=== PATIENT | female | born 1985 | race Caucasian/White ===

== ENCOUNTER 2018-10-08 12:41 | Emergency (ER) | payer OTHER ==
[2018-10-08] MEDS ORDERED: Ondansetron 4 MG/2 ML SDV IVPUSH ONE ×2 (13:20→15:52)
[2018-10-08] MEDS ORDERED: Alum Hydrox/Mag Hydrox/Simeth 15 ML, Lidocaine 2% 5 ML PO ONE ×2 (13:20)
[2018-10-08] MEDS ORDERED: Sodium Chloride 0.9% 1,000 ML IV ONE (13:20)
[2018-10-08] MEDS ORDERED: Pantoprazole 40 MG Vial IVPUSH ONE (13:33)
[2018-10-08] MEDS ORDERED: Ketorolac 30 MG/ML SDV IVPUSH ONE (13:34)
[2018-10-08] MEDS ORDERED: Water For Injection, Sterile 20 ML ONE (13:47)
[2018-10-08 13:54] LABS: CHLORIDE,CL 101 mmol/L (98-107); SODIUM,NA 137 mmol/L (136-145)
[2018-10-08] MEDS ORDERED: Iopamidol 755 MG/ML 500 ML Multipack Bottle IV STA (14:57)
--- NOTE | 2018-10-08 16:12 | EDM.PDOC ---
ED HPI GENERAL MEDICAL PROBLEM - General Chief Complaint: Abdominal Pain Stated Complaint: STOMACH PAIN Time Seen by Provider: 10/08/18 12:43 Source of Information: Reports: Patient History Limitations: Reports: No Limitations - History of Present Illness INITIAL COMMENTS - FREE TEXT/NARRATIVE: HISTORY AND PHYSICAL: History of present illness: Patient is a 33-year-old female presents to the ED today with concern of right lower abdominal pain and diarrhea with nausea since yesterday. Patient does express some heartburn symptoms. Patient states she is having several episodes of watery diarrhea today. Patient states she feels nauseous and is having 8 out of 10 right lower quadrant pain. Patient denies any abdominal surgeries. Patient denies any health history. Patient states she has not taken anything for her symptoms. Patient denies any other associated symptoms. Patient denies fever, chills, chest pain, shortness of breath, or cough. Denies headache, neck stiff ness, change in vision, syncope, or near syncope. Denies vomiting, or dysuria. Has not noted any blood in urine or stool. Patient has been eating and drinking appropriately prior to onset of symptoms. Review of systems: As per history of present illness and below otherwise all systems reviewed and negative. Past medical history: As per history of present illness and as reviewed below otherwise noncontributory. Surgical history: As per history of present illness and as reviewed below otherwise noncontributory. Social history: See social history for further information Family history: As per history of present illness and as reviewed below otherwise noncontributory. Physical exam: General: Patient is alert, oriented, and in no acute distress. Patient sitting comfortably on exam table. HEENT: Atraumatic, normocephalic, pupils equal and reactive bilaterally, negative for conjunctival pallor or scleral icterus, mucous membranes moist, TMs normal bilaterally, throat clear, neck supple, nontender, trachea midline. No drooling or trismus noted. No meningeal signs. No hot potato voice noted. Lungs: Clear to auscultation, breath sounds equal bilaterally, chest nontender. Heart: S1S2, regular rate and rhythm without overt murmur Abdomen: Soft, nondistended. Mild pain with palpation of the. Umbilical area without guarding. Negative rebound. Negative for masses or hepatosplenomegaly. Negative for costovertebral tenderness. Pelvis: Stable nontender. Genitourinary: Deferred. Rectal: Deferred. Skin: Intact, warm, dry. No lesions or rashes noted. Extremities: Atraumatic, negative for cords or calf pain. Neurovascular unremarkable. Neuro: Awake, alert, oriented. Cranial nerves II through XII unremarkable. Cerebellum unremarkable. Motor and sensory unremarkable throughout. Exam nonfocal. Notes: Dr. Manning verbally involved in patient care. Patient is unable to leave a stool sample in the ED. Collection supplies have been given to her to leave a sample at home and return to lab. Referral generated to General Surgery. Voices understanding and is agreeable to plan of care. Denies any further questions or concerns at this time. Diagnostics: CBC, CMP, UA, urine hCG, lipase, abdominal pelvic CT, stool studies Therapeutics: Zofran, saline, Protonix, Prescription: Zofran, Ciprofloxacin, Flagyl, Bentyl Impression: Mild Colitis Plan: 1. Stool collection supplies have been provided to you to leave a sample at home and return to our lab. 2. Alternate ibuprofen and Tylenol as directed for pain and discomfort. Take medication as prescribed. 3. Follow up with General Surgery provider as discussed. Return to the ED as needed and as discussed. Definitive disposition and diagnosis as appropriate pending reevaluation and review of above. Abdomen Pain Score (Numeric/FACES): 7 - Related Data Allergies Allergy/AdvReac Type Severity Reaction Status Date / Time adhesive tape Allergy Rash Verified 10/08/18 13:05 NSAIDS (Non-Steroidal Allergy Diarrhea Verified 10/08/18 13:05 Anti-Inflamma prednisone Allergy Other Verified 10/08/18 13:05 sulfamethoxazole Allergy Itching Verified 10/08/18 13:05 [From Bactrim] trimethoprim [From Bactrim] Allergy Itching Verified 10/08/18 13:05 Home Meds: Home Meds ALPRAZolam [Xanax] 1 mg PO TID 10/08/18 [History] Acetaminophen [Tylenol] 650 mg PO ASDIRECTED 10/08/18 [History] FLUoxetine [PROzac] 60 mg PO BID 10/08/18 [History] Past Medical History Other Neuro History: TBA Psychiatric History: Reports: Anxiety - Infectious Disease History Infectious Disease History: Reports: Chicken Pox - Past Surgical History Female Surgical History: Reports: Section Musculoskeletal Surgical History: Reports: Other (See Below) Other Musculoskeletal Surgeries/Procedures:: 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 Left foot surgery Social & Family History - Family History Family Medical History: Noncontributory - Tobacco Use Smoking Status *Q: Current Every Day Smoker Years of Tobacco use: 18 Packs/Tins Daily: 0.5 - Caffeine Use Caffeine Use: Reports: Coffee - Recreational Drug Use Recreational Drug Use: No ED ROS GENERAL - Review of Systems Review Of Systems: ROS reveals no pertinent complaints other than HPI. ED EXAM, GENERAL - Physical Exam Exam: See Below (See dictation) Course - Vital Signs Last Recorded V/S: Last Vital Signs Temp 36.1 C 10/08/18 15:03 Pulse 69 10/08/18 15:03 Resp 18 10/08/18 13:15 BP 100/52 L 10/08/18 15:03 Pulse Ox 98 10/08/18 15:03 - Orders/Labs/Meds Orders: Active Orders 24 hr Category Date Time Status CDIFF TOX A+B [OP] Stat Lab 10/08/18 13:20 Ordered CULTURE STOOL + CAMPY+SHIGATOX [RM] Stat Lab 10/08/18 13:20 Ordered OVA & PARASITES BY IMMUNOASSAY [MREF] Stat Lab 10/08/18 13:20 Ordered Isolation [COMM] Stat Oth 10/08/18 13:21 Ordered Labs: Laboratory Tests 10/08/18 10/08/18 10/08/18 Range/Units 13:14 13:14 13:16 WBC 12.88 H (4.0-11.0) K/uL RBC 4.62 (4.30-5.90) M/uL Hgb 14.8 (12.0-16.0) g/dL Hct 43.6 (36.0-46.0) % MCV 94.4 (80.0-98.0) fL MCH 32.0 (27.0-32.0) pg MCHC 33.9 (31.0-37.0) g/dL RDW Std Deviation 46.9 (28.0-62.0) fl RDW Coeff of Angela 14 (11.0-15.0) % Plt Count 277 (150-400) K/uL MPV 10.50 (7.40-12.00) fL Neut % (Auto) 71.5 (48.0-80.0) % Lymph % (Auto) 20.5 (16.0-40.0) % [place] % (Auto) 5.7 (0.0-15.0) % Eos % (Auto) 1.8 (0.0-7.0) % Baso % (Auto) 0.5 (0.0-1.5) % Neut # (Auto) 9.2 H (1.4-5.7) K/uL Lymph # (Auto) 2.6 H (0.6-2.4) K/uL [place] # (Auto) 0.7 (0.0-0.8) K/uL Eos # (Auto) 0.2 (0.0-0.7) K/uL Baso # (Auto) 0.1 (0.0-0.1) K/uL Nucleated RBC % 0.0 /100WBC Nucleated RBCs # 0 K/uL Sodium (136-145) mmol/L Potassium (3.5-5.1) mmol/L Chloride (98-107) mmol/L Carbon Dioxide (21.0-32.0) mmol/L BUN (7.0-18.0) mg/dL Creatinine (0.6-1.0) mg/dL Est Cr Clr Drug Dosing mL/min Estimated GFR (MDRD) ml/min Glucose (74-106) mg/dL Calcium (8.5-10.1) mg/dL Total Bilirubin (0.2-1.0) mg/dL AST (15-37) IU/L ALT (14-63) IU/L Alkaline Phosphatase (46-116) U/L Total Protein (6.4-8.2) g/dL Albumin (3.4-5.0) g/dL Globulin (2.6-4.0) g/dL Albumin/Globulin Ratio (0.9-1.6) Lipase (73-393) U/L Urine Color YELLOW Urine Appearance CLEAR Urine pH 8.0 (5.0-8.0) Ur Specific [place] 1.010 (1.001-1.035) Urine Protein NEGATIVE (NEGATIVE) mg/dL Urine Glucose (UA) NEGATIVE (NEGATIVE) mg/dL Urine Ketones NEGATIVE (NEGATIVE) mg/dL Urine Occult Blood NEGATIVE (NEGATIVE) Urine Nitrite NEGATIVE (NEGATIVE) Urine Bilirubin NEGATIVE (NEGATIVE) Urine Urobilinogen 0.2 (<2.0) EU/dL Ur Leukocyte Esterase NEGATIVE (NEGATIVE) Urine HCG, Qual NEGATIVE (NEGATIVE) 10/08/18 Range/Units 13:16 WBC (4.0-11.0) K/uL RBC (4.30-5.90) M/uL Hgb (12.0-16.0) g/dL Hct (36.0-46.0) % MCV (80.0-98.0) fL MCH (27.0-32.0) pg MCHC (31.0-37.0) g/dL RDW Std Deviation (28.0-62.0) fl RDW Coeff of Angela (11.0-15.0) % Plt Count (150-400) K/uL MPV (7.40-12.00) fL Neut % (Auto) (48.0-80.0) % Lymph % (Auto) (16.0-40.0) % [place] % (Auto) (0.0-15.0) % Eos % (Auto) (0.0-7.0) % Baso % (Auto) (0.0-1.5) % Neut # (Auto) (1.4-5.7) K/uL Lymph # (Auto) (0.6-2.4) K/uL [place] # (Auto) (0.0-0.8) K/uL Eos # (Auto) (0.0-0.7) K/uL Baso # (Auto) (0.0-0.1) K/uL Nucleated RBC % /100WBC Nucleated RBCs # K/uL Sodium 137 (136-145) mmol/L Potassium 4.4 (3.5-5.1) mmol/L Chloride 101 (98-107) mmol/L Carbon Dioxide 26.5 (21.0-32.0) mmol/L BUN 13 (7.0-18.0) mg/dL Creatinine 0.9 (0.6-1.0) mg/dL Est Cr Clr Drug Dosing 76.77 mL/min Estimated GFR (MDRD) > 60.0 ml/min Glucose 97 (74-106) mg/dL Calcium 8.9 (8.5-10.1) mg/dL Total Bilirubin 0.4 (0.2-1.0) mg/dL AST 22 (15-37) IU/L ALT 20 (14-63) IU/L Alkaline Phosphatase 91 (46-116) U/L Total Protein 7.6 (6.4-8.2) g/dL Albumin 3.9 (3.4-5.0) g/dL Globulin 3.7 (2.6-4.0) g/dL Albumin/Globulin Ratio 1.1 (0.9-1.6) Lipase 105 (73-393) U/L Urine Color Urine Appearance Urine pH (5.0-8.0) Ur Specific [place] (1.001-1.035) Urine Protein (NEGATIVE) mg/dL Urine Glucose (UA) (NEGATIVE) mg/dL Urine Ketones (NEGATIVE) mg/dL Urine Occult Blood (NEGATIVE) Urine Nitrite (NEGATIVE) Urine Bilirubin (NEGATIVE) Urine Urobilinogen (<2.0) EU/dL Ur Leukocyte Esterase (NEGATIVE) Urine HCG, Qual (NEGATIVE) Meds: Medications Discontinued Medications Generic Name Dose Route Start Last Admin Trade Name Freq PRN Reason Stop Dose Admin Al Hydroxide/Mg Hydroxide 15 0 ml 10/08/18 13:20 10/08/18 13:31 ml/ Lidocaine HCl 5 ml PO 10/08/18 13:21 1 each ONETIME ONE Administration Sodium Chloride 1,000 mls @ 999 mls/hr 10/08/18 13:20 10/08/18 13:30 Normal Saline IV 10/08/18 14:20 999 mls/hr STAT ONE Administration Sterile Water Confirm 10/08/18 13:47 10/08/18 13:53 Sterile Water For Injection Administered 10/08/18 13:48 1 mls/hr Dose Administration 20 mls @ as directed .ROUTE .STK-MED ONE Iopamidol 100 ml 10/08/18 14:57 10/08/18 14:58 Isovue Multipack-370 (76%) IV 10/08/18 14:58 100 ml ONETIME STA Administration Ketorolac Tromethamine 30 mg 10/08/18 13:34 10/08/18 13:53 Toradol IVPUSH 10/08/18 13:35 Not Given ONETIME ONE Ondansetron HCl 4 mg 10/08/18 13:20 10/08/18 13:31 Zofran IVPUSH 10/08/18 13:21 4 mg ONETIME ONE Administration Ondansetron HCl 4 mg 10/08/18 15:52 10/08/18 15:57 Zofran IVPUSH 10/08/18 15:53 4 mg ONETIME ONE Administration Pantoprazole Sodium 80 mg 10/08/18 13:33 10/08/18 13:53 Protonix Iv IVPUSH 10/08/18 13:34 80 mg .BOLUS ONE Administration Departure - Departure Time of Disposition: 16:28 Disposition: Home, Self-Care 01 Clinical Impression: Colitis - Discharge Information Instructions: Colitis Referrals: Reyes Adams MD [Primary Care Provider] - Forms: ED Department Discharge Additional Instructions: The following information is given to patients seen in the emergency department who are being discharged to home. This information is to outline your options for follow-up care. We provide all patients seen in our emergency department with a follow-up referral. The need for follow-up, as well as the timing and circumstances, are variable depending upon the specifics of your emergency department visit. If you don't have a primary care physician on staff, we will provide you with a referral. We always advise you to contact your personal physician following an emergency department visit to inform them of the circumstance of the visit and for follow-up with them and/or the need for any referrals to a consulting specialist. The emergency department will also refer you to a specialist when appropriate. This referral assures that you have the opportunity for follow-up care with a specialist. All of these measure are taken in an effort to provide you with optimal care, which includes your follow-up. Under all circumstances we always encourage you to contact your private physician who remains a resource for coordinating your care. When calling for follow-up care, please make the office aware that this follow-up is from your recent emergency room visit. If for any reason you are refused follow-up, please contact the [facility] Emergency Department at and asked to speak to the emergency department charge nurse. [facility] [address] [place] [address] [address] [facility] - General Surgery Professional Building [address] [place] [address], [address] [place] [address] 1. Stool collection supplies have been provided to you to leave a sample at home and return to our lab. 2. Alternate ibuprofen and Tylenol as directed for pain and discomfort. Take medication as prescribed. 3. Follow up with General Surgery/ PCP provider as discussed. Return to the ED as needed and as discussed. - My Orders Last 24 Hours: My Active Orders 10/08/18 13:20 CDIFF TOX A+B [OP] Stat CULTURE STOOL + CAMPY+SHIGATOX [RM] Stat OVA & PARASITES BY IMMUNOASSAY [MREF] Stat 10/08/18 13:21 Isolation [COMM] Stat - Assessment/Plan Last 24 Hours: My Active Orders 10/08/18 13:20 CDIFF TOX A+B [OP] Stat CULTURE STOOL + CAMPY+SHIGATOX [RM] Stat OVA & PARASITES BY IMMUNOASSAY [MREF] Stat 10/08/18 13:21 Isolation [COMM] Stat
--- NOTE | 2018-10-08 16:14 | CT ---
INDICATION: Periumbilical and right lower quadrant pain. CT ABDOMEN AND PELVIS WITH CONTRAST TECHNIQUE: Multidetector CT imaging was performed through the abdomen and pelvis following intravenous contrast administration using 100 mL Isovue 370. Coronal and sagittal reconstructions were generated. COMPARISON: None. FINDINGS: Lower chest: Minimal basilar lung atelectasis. Liver: Within normal limits. Gallbladder and bile ducts: No gallbladder wall thickening or calcified gallstones. No biliary dilation identified. Pancreas: Unremarkable. Spleen: Normal. Adrenals: No nodules or masses. Kidneys, ureters, and urinary bladder: No renal masses or hydronephrosis. No bladder mass or definite wall thickening. Gastrointestinal tract: Normal caliber small bowel without wall thickening or obstruction. The appendix is normal. Diffuse wall prominence of the colon is favored to be due to nondistention although mild colitis is not entirely excluded. Vascular structures: Normal for age. Peritoneum: No free air, abscess, or significant free fluid. Lymph nodes: No pathologically enlarged nodes identified. Reproductive organs: No pelvic masses. Recently ruptured follicle or corpus luteum within the right ovary. Bones: Normal for age. IMPRESSION: 1. Mild diffuse wall prominence of the colon is favored due to nondistention although mild colitis is not entirely excluded. 2. Normal appendix. CHRISTOPHER CHAIREZ MD [employer] Dictated by Rashaad Chairez MD @ 10/08/2018 4:10:36 PM Dictated by: Rasahad Chairez MD @ 10/08/2018 16:13:31 (Electronically Signed)
== END 2018-10-08 16:38 | disposition home or self-care (01) ==
LOC: MW.ED 12:41
DX: K52.9 Noninfective gastroenteritis and colitis, unspecified (principal); F41.9 Anxiety disorder, unspecified; F17.210 Nicotine dependence, cigarettes, uncomplicated; Z91.09 Other allergy status, other than to drugs and biological substances; Z88.2 Allergy status to sulfonamides; Z79.899 Other long term (current) drug therapy
CPT/HCPCS: 36415; 74177; 80053; 81003; 81025; 83690; 85025; 87046; 87324; 87328; 87329; 96361; 96374; 96375; 96376; 99284; A9270; C9113; J2405; J7040; Q9967

== ENCOUNTER 2018-10-25 06:24 | Day surgery (SDC) | payer OTHER ==
[~2018-10-25 06:24] MED LIST: Lactated Ringers 1,000 ML IV SCH; ceFAZolin 2 GM in Premix Bag 1 BAG IV ONE
[2018-10-25] MEDS ORDERED: Bupivacaine 0.5% 30 ML SDV ONE (07:19)
--- NOTE | 2018-10-25 07:19 | PCM.PREANE ---
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) Other: Reports: None (hx PTSD, with few problems) - Physical Assessment O2 Sat by Pulse Oximetry: 97 Respiratory Rate: 15 Vital Signs: Last Vital Signs Temp 97.3 F 10/25/18 06:59 Pulse 70 10/25/18 06:59 Resp 15 10/25/18 06:59 BP 137/84 10/25/18 06:59 Pulse Ox 97 10/25/18 06:59 Height: 5 ft 4 in Weight: 63.957 kg ASA Class: 2 Airway Class: Mallampati = 2 ROM/Head Extension: Full Lungs: Clear to Auscultation, Normal Respiratory Effort Cardiovascular: Regular Rate, Regular Rhythm - Lab Values: Laboratory Last Values Urine HCG, Qual NEGATIVE (NEGATIVE) 10/25/18 06:45 - Allergies Allergies/Adverse Reactions: Allergies Allergy/AdvReac Type Severity Reaction Status Date / Time adhesive tape Allergy Rash Verified 10/22/18 13:09 NSAIDS (Non-Steroidal Allergy Diarrhea Verified 10/22/18 13:09 Anti-Inflamma prednisone Allergy told not Verified 10/22/18 13:12 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 sulfamethoxazole Allergy Itching Verified 10/22/18 13:09 [From Bactrim] trimethoprim [From Bactrim] Allergy Itching Verified 10/22/18 13:09 - Blood Blood Available: No - Anesthesia Plan Pre-Op Medication Ordered: None - Acknowledgements Anesthesia Type Planned: General Anesthesia Pt an Appropriate Candidate for the Planned Anesthesia: Yes Alternatives and Risks of Anesthesia Discussed w Pt/Guardian: Yes Pt/Guardian Understands and Agrees with Anesthesia Plan: Yes Additional Comments: anes prob list: ptsd PLAN: ga/lma PreAnesthesia Questionnaire HEENT History: Reports: None Cardiovascular History: Reports: None Respiratory History: Reports: None Gastrointestinal History: Reports: Other (See Below) Other Gastrointestinal History: ulcerative colitis Genitourinary History: Reports: Pyelonephritis SHAREPOINT ADMINISTRATOR History: Reports: Musculoskeletal History: Reports: Back Pain, Chronic, Fracture Other Musculoskeletal History: traumatic injury to right foot in the Neurological History: Reports: Head Trauma, Other (See Below) Other Neuro History: TBA Psychiatric History: Reports: Anxiety, Depression, PTSD Endocrine/Metabolic History: Reports: None Hematologic History: Reports: None Immunologic History: Reports: None Oncologic (Cancer) History: Reports: None Dermatologic History: Reports: None - Infectious Disease History Infectious Disease History: Reports: Chicken Pox - Past Surgical History Head Surgeries/Procedures: Reports: None HEENT Surgical History: Reports: None Cardiovascular Surgical History: Reports: None Respiratory Surgical History: Reports: None GI Surgical History: Reports: None Female Surgical History: Reports: Section Endocrine Surgical History: Reports: None Neurological Surgical History: Reports: None Musculoskeletal Surgical History: Reports: Amputation, Other (See Below) Other Musculoskeletal Surgeries/Procedures:: reconstruction and partial 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 due to injury in the , left ankle surgery with cadaver ligaments, surgery for hammer toes-left foot (has plastic pins in toes- left foot) Oncologic Surgical History: Reports: None Dermatological Surgical History: Reports: None - SUBSTANCE USE Smoking Status *Q: Never Smoker Recreational Drug Use History: No - HOME MEDS Home Medications: Home Meds ALPRAZolam [Xanax] 1 mg PO TID PRN 10/08/18 [History] Acetaminophen [Tylenol] 650 mg PO ASDIRECTED PRN 10/08/18 [History] DULoxetine HCl [Duloxetine HCl] 60 mg PO BID 10/22/18 [History] Multivitamin [Multivitamins] 1 tab PO DAILY 10/22/18 [History] Onabotulinumtoxina [Botox] 1 injection SUBCUT ASDIRECTED 10/22/18 [History] - CURRENT (IN HOUSE) MEDS Current Meds: Current Medications Lactated Ringer's (Ringers, Lactated) 1,000 mls @ 125 mls/hr IV ASDIRECTED DAYANNA Last Admin: 10/25/18 07:14 Dose: 125 mls/hr Discontinued Medications Cefazolin Sodium/Dextrose 2 gm (/ Premix) 50 mls @ 100 mls/hr IV ONETIME ONE Stop: 10/24/18 22:19
[2018-10-25] MEDS ORDERED: Dexamethasone 4 MG/ML 5 ML MDV ONE ×2 (07:20→08:36)
[2018-10-25] MEDS ORDERED: Lidocaine 2% 5 ML SDV ONE (07:36)
[2018-10-25] MEDS ORDERED: Propofol 200 MG/20 ML SDV ONE (07:36)
[2018-10-25] MEDS ORDERED: fentaNYL 100 MCG/2 ML SDV ONE (07:37)
[2018-10-25] MEDS ORDERED: Midazolam 1 MG/ML 2 ML SDV ONE (07:37)
[2018-10-25] MEDS ORDERED: ceFAZolin/Dextrose,Iso-Osmotic 2 GM/50 ML Duplex Bag IV ONE (08:22)
[2018-10-25] MEDS ORDERED: HYDROmorphone 2 MG/ML Syringe ONE (08:32)
--- NOTE | 2018-10-25 08:55 | PN ---
IDENTIFICATION: The patient is a 33-year-old female. PREOPERATIVE DIAGNOSIS: Displaced fracture of the proximal phalanx of the hallux on the left foot. PLANNED PROCEDURE: Open reduction with internal fixation of fracture of left great toe. The patient was cleared for surgery by Dr. Reyes Adams at the [facility]. MEDICAL HISTORY: The patient has allergies to prednisone, adhesive tape, and Bactrim. ACTIVE OUTPATIENT MEDICATIONS: 1. Acetaminophen 325 mg tablet 1 tablet by mouth every 6 hours as needed for pain. 2. Alprazolam 1 mg tablet 1 tablet by mouth 3 times a day as needed for anxiety. 3. Duloxetine/hydrochloride 60 mg enteric coated caplet 1 capsule by mouth twice a day. 4. Fish oil 1000 mg caplet 1 capsule by mouth every morning for triglycerides. 5. Melatonin 3 mg cap, take 2 caps by mouth at bedtime for sleep. 6. Prazosin/hydrochloride 2 mg cap 1 capsule by mouth at bedtime for nightmares. 7. Sumatriptan succinate 6 mg/0.5 mL refill kit injection, inject 6 mg/0.5 mL subcutaneously once for migraine headache. The patient according to the preoperative clearance did have preoperative labs, which were unremarkable. Chest x-ray which was unremarkable and an EKG, which was unremarkable. The patient presents for surgery today. Written consent has been obtained for surgery and placed in the patient's chart. All risks and benefits have been discussed with the patient. No guarantees have been expressed or implied. FAM BAUTISTA /[id number]
[2018-10-25] MEDS ORDERED: Ondansetron 4 MG/2 ML SDV ONE (10:22)
[2018-10-25] MEDS ORDERED: Promethazine 25 MG/ML SDV IM PRN (10:47)
[2018-10-25] MEDS: fentaNYL 100 MCG/2 ML SDV IVPUSH PRN ×2 (11:09→11:20)
--- NOTE | 2018-10-25 11:21 | PCM.OPNOTE ---
- General Post-Op/Procedure Note Date of Surgery/Procedure: 10/25/18 Operative Procedure(s): orif fracture of left hallux Findings: consistent with diagnosis Pre Op Diagnosis: displaced fracture of proximal phalanx of left hallux Post-Op Diagnosis: displaced fracture of proximal phalanx of left hallux Anesthesia Technique: General LMA Primary Surgeon: Sung Casillas Pathology: none EBL in mLs: 5 Complications: none Condition: Good Free Text/Narrative:: materials: Cheikh ASNIS cannulated screw 3.0 x 16 mm Cheikh ASNIS cannulated screw 2.0 x 28 mm 4-0 Vicryl 4-0 Stratafix injectables: 5 ml of 0.5% marcaine plain
[2018-10-25] MEDS ORDERED: Acetaminophen 1,000 MG in Premix Bag 1 BAG IV PRN (11:28)
[2018-10-25] MEDS ORDERED: oxyCODONE 5 MG Tab PO ONE (12:18)
--- NOTE | 2018-10-25 12:56 | PCM.POSTAN ---
POST ANESTHESIA ASSESSMENT - MENTAL STATUS Mental Status: Alert, Oriented - RESPIRATORY Respiratory Status: Respiratory Rate WNL, Airway Patent, O2 Saturation Stable - CARDIOVASCULAR CV Status: Pulse Rate WNL, Blood Pressure Stable - GASTROINTESTINAL GI Status: No Symptoms - POST OP HYDRATION Hydration Status: Adequate & Stable
--- NOTE | 2018-10-25 12:57 | PCM48HPAN ---
Post Anesthesia Note - EVALUATION WITHIN 48HRS OF ANESTHETIC Vital Signs in Normal Range: Yes Patient Participated in Evaluation: Yes Respiratory Function Stable: Yes Airway Patent: Yes Cardiovascular Function Stable: Yes Hydration Status Stable: Yes Pain Control Satisfactory: Yes Nausea and Vomiting Control Satisfactory: Yes Mental Status Recovered: Yes Resp Rate: 25
--- NOTE | 2018-10-26 01:13 | OR ---
SURGEON: Sung Casillas DPM DATE OF PROCEDURE: 10/25/2018 PRIMARY SURGEON: Sung Csaillas DPM PREOPERATIVE DIAGNOSIS: Displaced fracture of the proximal phalanx of the left hallux. POSTOPERATIVE DIAGNOSIS: Displaced fracture of the proximal phalanx of the left hallux. OPERATIVE PROCEDURE: Open reduction with internal fixation of the fracture of the left hallux. FINDINGS: Consistent with the diagnosis. ANESTHESIA: General. HEMOSTASIS: Above ankle pneumatic tourniquet inflated to a pressure of 250 mmHg after an Esmarch bandage exsanguination of the left lower extremity. PATHOLOGY: None. ESTIMATED BLOOD LOSS: 5 mL. COMPLICATIONS: None. MATERIALS: Cheikh Asnis cannulated screw 3.0 x 16 mm and Cheikh Asnis cannulated screw 2.0 x 28 mm, 4-0 Vicryl, 4-0 Stratafix. INJECTABLES: 5 mL of 0.5% Marcaine plain. CONDITION: The patient tolerated the procedure and anesthesia well. There were no complications noted. The patient had a prompt hyperemic response to all digits of the left foot following deflation of the above-ankle pneumatic tourniquet. 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 This has resulted in an incongruent interphalangeal joint, lack of joint range of motion, and considerable pain for the patient. Conservative treatment is no longer the possibility, and the patient's condition requires surgical correction. The patient and I discussed risks and benefits of surgery. All patient questions were answered. The patient consented for the surgery today in writing, and consent is in the patient's chart. The patient understands that there are no guarantees given or implied and that potential arthritis of the joint as well as some bone loss may be required in order to properly fixate and reapproximate the fragment that is displaced. PROCEDURE IN DETAIL: The patient was brought to the operating room and placed on the operating table in a supine position. Anesthesia was administered. Above-ankle pneumatic tourniquet was placed above the malleoli of the left ankle. Aseptic scrub and drape was performed about the left lower extremity. The patient was draped. The surgical site was marked. Preoperative x-rays were taken. Esmarch bandage exsanguination was performed on the left lower extremity, and the tourniquet was inflated to pressure of 250 mmHg. Incision was made over the dorsal aspect of the hallux of the left foot running from the proximal portion of the proximal phalanx over the interphalangeal joint and terminating at the proximal portion of the distal phalanx of the hallux. The extensor hallucis longus tendon was identified, and a transverse tenotomy was performed to reflect the proximal and distal portions of the tendon out of the path of the work to be done on the distal portion of the proximal phalanx of the hallux and to visualize the interphalangeal joint. 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 Hypertrophy of the distal portion of the proximal phalanx also was causing immobility of the interphalangeal joint. With careful dissection using a number 15 blade as well as [place] blade, the tissue was dissected from the distal portion of the proximal phalanx of the hallux, and a small bone rongeur was used to remove hypertrophic bone that restricted motion in the interphalangeal joint of the hallux. The TPS saw was used to follow the healed fracture line that healed with a severe malunion in order to free the distal portion which was elevated of the proximal phalanx of the hallux. Due to the amount of time that has passed from the time of injury and healing in the abnormal position, perfect reconstruction of the contour and positioning of the proximal phalanx of the hallux is not possible. However, the optimal achievable placement was accomplished, and the fracture was then fixated in a significantly improved alignment with 2 screws, one being a 3.0 x 16 mm Cheikh cannulated Asnis screw which was drilled through the distal end of the proximal phalanx proximally to fixate the distal portion of the proximal phalanx to the remainder of the proximal phalanx of the hallux. This fixation was then further held in place with the drilling of a K-wire obliquely from the distal lateral portion of the proximal phalanx to the proximal medial portion of the proximal phalanx, and this enabled placement of a 2 mm x 28 mm Stuyvesant Asnis screw which traversed obliquely across the proximal phalanx of the hallux and superior to the 3 mm screw. Excellent fixation was achieved. The gap due to bone loss that could not be reapproximated was filled with Cheikh DBM bone product. It should also be noted that the area was flushed with copious amounts of normal sterile saline throughout the procedure, and intraoperative fluoroscopy was utilized to verify alignment and screw placement. The extensor hallucis longus tendon and the deep and subcutaneous levels of tissue were reapproximated with 4-0 Vicryl suture, and the superficial skin was reapproximated with 4-0 Stratafix suture. The tourniquet was deflated during the closure of the layers of tissue and skin, and a prompt hyperemic response was noted to the digits of the left foot following deflation of the tourniquet. Dressings consisted of Betadine-soaked Xeroform gauze over the incision site followed by fluff gauze, a Kerlix roll, and an Chase bandage. The patient tolerated the procedure and the anesthesia well and has written and verbal instructions for followup in 3 days in my office. The patient has my cell phone number should she have any concerns at any time. FAM / [email or web address] /[phone]
== END 2018-10-25 13:06 | disposition home or self-care (01) ==
LOC: MW.SDS 06:24
PROVIDERS: ATTEND Podiatrist Foot & Ankle Surgery
DX: S92.412P Displaced fracture of proximal phalanx of left great toe, subsequent encounter for fracture with malunion (principal); F43.10 Post-traumatic stress disorder, unspecified; F32.9 Major depressive disorder, single episode, unspecified; K52.9 Noninfective gastroenteritis and colitis, unspecified; X58.XXXD Exposure to other specified factors, subsequent encounter; Z88.6 Allergy status to analgesic agent; Z88.1 Allergy status to other antibiotic agents; Z88.2 Allergy status to sulfonamides; Z88.8 Allergy status to other drugs, medicaments and biological substances; Z91.048 Other nonmedicinal substance allergy status; Z79.899 Other long term (current) drug therapy
CPT/HCPCS: 28505; 81025; A9270; C1713; J0131; J0690; J1100; J1170; J2001; J2250; J2405; J2704; J3010; J3490; J7120